=== PATIENT | male | born 1950 | race Hispanic/Latino ===

== ENCOUNTER 2017-07-19 22:10 | Inpatient (IN) | payer OTHER ==
[~2017-07-19] VITALS: Ht 167.6 cm; Wt 97.1 kg
[2017-07-19] MEDS ORDERED: METOPROLOL TARTRATE 1 MG/ML 5ML VIAL IV ONE (22:13)
[2017-07-19] MEDS ORDERED: FUROSEMIDE 10 MG/ML 4ML VIAL ONE (22:13)
[2017-07-19 22:27] LABS: BASOPHILS % (AUTO) 0.6 % (0.0-5.0); EOSINOPHILS % (AUTO) 1.1 % (0.0-8.0); LYMPHOCYTES % (AUTO) 14.7 % (21.0-51.0); MEAN CORPUSCULAR HEMOGLOBIN 28.9 pg (27.0-33.0); MEAN CORPUSCULAR HGB CONC 34.3 g/dL (32.0-36.0); MEAN CORPUSCULAR VOLUME 84.2 fL (79-99); MONOCYTES % (AUTO) 6.8 % (3.0-13.0); NEUTROPHILS % (AUTO) 76.8 % (40.0-77.0); PLATELET COUNT (AUTO) 313 K/uL (130-400); RED BLOOD CELL COUNT(AUTO) 5.11 MIL/uL (4.50-6.20); RED CELL DISTRIBUTION WIDTH 12.8 % (11.0-15.5); WHITE BLOOD COUNT (AUTO) 14.4 K/uL (4.8-10.8)
[2017-07-19 22:36] LABS: CREATININE 1.5 mg/dL (0.5-1.5); POTASSIUM 3.4 mmol/L (3.5-5.1)
[2017-07-19 22:39] LABS: INR 1.11 (0.85-1.15); PARTIAL THROMBOPLASTIN TIME 28.8 SEC (26.3-35.5); PROTHROMBIN TIME 11.6 SEC (9.6-11.6)
[2017-07-19 22:49] LABS: ALBUMIN 2.4 g/dL (3.5-5.0); BILIRUBIN,TOTAL 0.5 mg/dL (0.2-1.0); CREATINE KINASE MB 2.2 ng/mL (0.5-3.6); TOTAL PROTEIN, SERUM 7.7 g/dL (6.0-8.3)
[2017-07-19 22:59] LABS: RAPID GROUP A STREP NEGATIVE (NEGATIVE)
[2017-07-19 23:08] LABS: B-TYPE NATRIURETIC PEPTIDE 22 pg/mL (0-100)
[2017-07-19 23:09] LABS: ABG BASE EXCESS 0.9 mmol/L (-2.0-3.0); ABG HCO3 23.6 mmol/L (21.0-28.0); ABG OXYGEN SATURATION 94.9 % (95.0-99.0); ABG PCO2 33 mmHg (35-48)
[2017-07-20] VITALS (7 sets, daily range): BP systolic 107–134; BP diastolic 60–71
[2017-07-20 00:23] LABS: APPEARANCE,URINE Clear (CLEAR); BILIRUBIN,URINE Negative (NEGATIVE); COLOR,URINE Yellow (YELLOW); GLUCOSE, URINE (UA) Negative (NEGATIVE); KETONES,URINE Negative (NEGATIVE); LEUKOCYTE ESTERASE ,URINE Negative (NEGATIVE); NITRATE,URINE Negative (NEGATIVE); OCCULT BLOOD,URINE Negative (NEGATIVE); PH,URINE 6.5 (5.0-8.0); PROTEIN,URINE Negative (NEGATIVE); UROBILINOGEN,URINE 0.2 mg/dL (0.2-1.0)
[2017-07-20] MEDS ORDERED: DIGOXIN 250 MCG/ML 2ML AMP ONE (00:59)
[2017-07-20] MEDS ORDERED: FURO80TA3 PO (02:30)
[2017-07-20] MEDS ORDERED: POTA20TA12 PO (02:30)
[2017-07-20] MEDS ORDERED: SULF1TAB41 PO (02:30)
[2017-07-20 04:23] LABS: BASOPHILS % (AUTO) 0.3 % (0.0-5.0); EOSINOPHILS % (AUTO) 1.4 % (0.0-8.0); HEMATOCRIT 39.7 % (42-54); LYMPHOCYTES % (AUTO) 17.5 % (21.0-51.0); MEAN CORPUSCULAR HEMOGLOBIN 29.5 pg (27.0-33.0); MEAN CORPUSCULAR HGB CONC 34.9 g/dL (32.0-36.0); MEAN CORPUSCULAR VOLUME 84.6 fL (79-99); NEUTROPHILS % (AUTO) 73.8 % (40.0-77.0); PLATELET COUNT (AUTO) 274 K/uL (130-400); RED BLOOD CELL COUNT(AUTO) 4.69 MIL/uL (4.50-6.20); RED CELL DISTRIBUTION WIDTH 12.9 % (11.0-15.5); WHITE BLOOD COUNT (AUTO) 10.7 K/uL (4.8-10.8)
[2017-07-20 04:25] LABS: CREATININE 1.4 mg/dL (0.5-1.5); POTASSIUM 3.3 mmol/L (3.5-5.1)
[2017-07-20 05:07] LABS: B-TYPE NATRIURETIC PEPTIDE 29 pg/mL (0-100)
[2017-07-20] MEDS ORDERED: POTASSIUM CHLORIDE 20MEQ/100ML 100 ML IV PRN (08:45)
[2017-07-20] MEDS ORDERED: ACETAMINOPHEN 325 MG TAB PO PRN (08:45)
[2017-07-20] MEDS ORDERED: ONDANSETRON HCL 4 MG/2 ML VIAL IVP PRN (08:45)
[2017-07-20] MEDS ORDERED: POTASSIUM CHLORIDE 20 MEQ ERTAB PO PRN (08:45)
[2017-07-20] MEDS ORDERED: LIDOCAINE HCL-MPF 1% 2ML VIAL IJ PRN (08:45)
[2017-07-20] MEDS ORDERED: SODIUM CHLORIDE 0.9% 10 ML VIAL IVP SCH (08:45)
[2017-07-20] MEDS ORDERED: POTASSIUM CHLORIDE 10% ELIXIR 20 MEQ/15 ML UDCUP PO PRN (08:45)
[2017-07-20] MEDS ORDERED: FUROSEMIDE 10 MG/ML 4ML VIAL IVP SCH (09:00)
[2017-07-20] MEDS ORDERED: FUROSEMIDE 10 MG/ML 4ML VIAL IV SCH (09:00)
[2017-07-20] MEDS ORDERED: HEPARIN SODIUM 5000UNIT/ML 1ML VIAL SQ SCH (09:00)
[2017-07-20] MEDS: FAMOTIDINE 20MG TAB 20 MG TAB PO SCH ×2 (09:47→20:52)
[2017-07-20] MEDS ORDERED: CEFTRIAXONE 1GM/D5W 50ML 50 ML IV SCH (12:30)
[2017-07-20] MEDS ORDERED: LEVOFLOXACIN 500 MG/D5W 100 ML 100 ML IV SCH (12:30)
[2017-07-20] MEDS: CEFTRIAXONE SODIUM 1 GM IVP SCH (13:44)
[2017-07-21 03:19] VITALS: BP 125/68
[2017-07-21 07:58] VITALS: BP 126/86
[2017-07-21] MEDS: POTASSIUM CHLORIDE 20 MEQ ERTAB PO SCH (08:00)
[2017-07-21] MEDS: FAMOTIDINE 20MG TAB 20 MG TAB PO SCH ×2 (10:33→20:27)
[2017-07-21] MEDS: FUROSEMIDE 80 MG TABLET PO SCH ×2 (10:38→20:27)
[2017-07-21] MEDS: ENOXAPARIN SODIUM 40 MG/0.4 ML SYRINGE SQ SCH (10:39)
[2017-07-21 11:24] VITALS: BP 127/69
[2017-07-21] MEDS ORDERED: LEVOFLOXACIN 250 MG/D5W 50ML 50 ML IVPB SCH (13:00)
[2017-07-21] MEDS: CEFTRIAXONE SODIUM 1 GM IVP SCH (13:14)
[2017-07-21 15:28] VITALS: BP 111/68
[2017-07-21 18:55] VITALS: BP 133/66
[2017-07-21 22:54] VITALS: BP 122/70
[2017-07-22 03:18] VITALS: BP 118/56
[2017-07-22] MEDS ORDERED: AMIODARONE HCL 200 MG TABLET PO SCH (03:45)
[2017-07-22] MEDS ORDERED: METOPROLOL TARTRATE 1 MG/ML 5ML VIAL IV PRN (03:45)
[2017-07-22] MEDS ORDERED: METOPROLOL TARTRATE 1 MG/ML 5ML VIAL IV SCH (03:45)
[2017-07-22 03:50] LABS: BASOPHILS % (AUTO) 0.4 % (0.0-5.0); EOSINOPHILS % (AUTO) 1.3 % (0.0-8.0); HEMATOCRIT 42.2 % (42-54); LYMPHOCYTES % (AUTO) 14.5 % (21.0-51.0); MEAN CORPUSCULAR HEMOGLOBIN 28.9 pg (27.0-33.0); MEAN CORPUSCULAR HGB CONC 34.3 g/dL (32.0-36.0); MEAN CORPUSCULAR VOLUME 84.2 fL (79-99); MONOCYTES % (AUTO) 5.8 % (3.0-13.0); PLATELET COUNT (AUTO) 272 K/uL (130-400); RED BLOOD CELL COUNT(AUTO) 5.01 MIL/uL (4.50-6.20); RED CELL DISTRIBUTION WIDTH 12.7 % (11.0-15.5); WHITE BLOOD COUNT (AUTO) 12.5 K/uL (4.8-10.8)
[2017-07-22 03:58] LABS: CREATININE 1.3 mg/dL (0.5-1.5); POTASSIUM 3.5 mmol/L (3.5-5.1)
[2017-07-22] MEDS ORDERED: METOPROLOL TARTRATE 1 MG/ML 5ML VIAL IV ONE (03:58)
[2017-07-22] MEDS ORDERED: AMIODARONE HCL 200 MG TABLET PO ONE (03:59)
[2017-07-22 07:14] LABS: ABG BASE EXCESS 7.4 mmol/L (-2.0-3.0); ABG HCO3 30.9 mmol/L (21.0-28.0); ABG OXYGEN SATURATION 88.9 % (95.0-99.0); ABG PCO2 39 mmHg (35-48)
[2017-07-22] MEDS ORDERED: LEVOFLOXACIN 250 MG/D5W 50ML 50 ML IV SCH (07:45)
[2017-07-22 07:49] VITALS: BP 104/63
[2017-07-22] MEDS ORDERED: CEFTRIAXONE 1GM/D5W 50ML 50 ML IV SCH (09:00)
[2017-07-22] MEDS: LEVOFLOXACIN 250 MG/D5W 50ML 50 ML IV SCH (09:05)
[2017-07-22] MEDS: CEFTRIAXONE SODIUM 1 GM IVP SCH (09:05)
[2017-07-22] MEDS: AMIODARONE HCL 200 MG TABLET PO SCH ×2 (09:06→20:16)
[2017-07-22] MEDS: FUROSEMIDE 80 MG TABLET PO SCH (09:06)
[2017-07-22] MEDS: FAMOTIDINE 20MG TAB 20 MG TAB PO SCH ×2 (09:06→20:15)
[2017-07-22] MEDS: POTASSIUM CHLORIDE 20 MEQ ERTAB PO SCH (09:06)
[2017-07-22] MEDS: ENOXAPARIN SODIUM 40 MG/0.4 ML SYRINGE SQ SCH (09:07)
[2017-07-22 11:22] VITALS: BP 117/64
[2017-07-22] MEDS: IPRATROPIUM/ALBUTEROL SULFATE 3 ML SOLUTION IH SCH ×3 (15:18→23:48)
[2017-07-22 16:07] VITALS: BP 118/51
[2017-07-22 19:07] VITALS: BP 131/66
[2017-07-22] MEDS ORDERED: SODIUM CHLORIDE 3% FOR INHALATION 4 ML/AMP VIAL.NEB IH ONE (22:35)
[2017-07-22 23:22] VITALS: BP 134/63
[2017-07-23 02:59] VITALS: BP 10/70
[2017-07-23 03:49] LABS: MEAN CORPUSCULAR HEMOGLOBIN 29.2 pg (27.0-33.0); MEAN CORPUSCULAR HGB CONC 34.4 g/dL (32.0-36.0); MEAN CORPUSCULAR VOLUME 84.8 fL (79-99); PLATELET COUNT (AUTO) 269 K/uL (130-400); RED BLOOD CELL COUNT(AUTO) 4.84 MIL/uL (4.50-6.20); WHITE BLOOD COUNT (AUTO) 14.6 K/uL (4.8-10.8)
[2017-07-23 03:58] LABS: CREATININE 1.2 mg/dL (0.5-1.5); POTASSIUM 3.3 mmol/L (3.5-5.1)
[2017-07-23 07:00] VITALS: BP 131/69
[2017-07-23] MEDS: IPRATROPIUM/ALBUTEROL SULFATE 3 ML SOLUTION IH SCH ×5 (07:06→23:39)
[2017-07-23] MEDS: FAMOTIDINE 20MG TAB 20 MG TAB PO SCH ×2 (09:58→21:40)
[2017-07-23] MEDS: AMIODARONE HCL 200 MG TABLET PO SCH ×2 (09:58→21:40)
[2017-07-23] MEDS: CEFTRIAXONE SODIUM 1 GM IVP SCH (09:58)
[2017-07-23] MEDS: LEVOFLOXACIN 250 MG/D5W 50ML 50 ML IV SCH (09:59)
[2017-07-23] MEDS: POTASSIUM CHLORIDE 20 MEQ ERTAB PO SCH (09:59)
[2017-07-23] MEDS: ENOXAPARIN SODIUM 40 MG/0.4 ML SYRINGE SQ SCH (10:00)
[2017-07-23] MEDS ORDERED: MEROPENEM 1 GM VIAL IVP SCH (10:45)
[2017-07-23 11:00] VITALS: BP 120/81
[2017-07-23] MEDS: MEROPENEM 1 GM VIAL IVP SCH ×2 (12:45→21:40)
[2017-07-23] MEDS ORDERED: ZOSYN 3.375GM+NS 50ML 50 ML IV SCH (13:30)
[2017-07-23] MEDS ORDERED: SODIUM CHLORIDE 3% FOR INHALATION 4 ML/AMP VIAL.NEB IH ONE (15:16)
[2017-07-23 16:00] VITALS: BP 106/61
[2017-07-23 19:25] VITALS: BP 111/73
[2017-07-23 23:49] VITALS: BP 109/63
[2017-07-24 04:06] VITALS: BP 112/58
[2017-07-24 04:07] LABS: BASOPHILS % (AUTO) 0.4 % (0.0-5.0); EOSINOPHILS % (AUTO) 1.1 % (0.0-8.0); LYMPHOCYTES % (AUTO) 12.1 % (21.0-51.0); MEAN CORPUSCULAR HEMOGLOBIN 29.1 pg (27.0-33.0); MEAN CORPUSCULAR HGB CONC 34.4 g/dL (32.0-36.0); MEAN CORPUSCULAR VOLUME 84.6 fL (79-99); MONOCYTES % (AUTO) 6.6 % (3.0-13.0); NEUTROPHILS % (AUTO) 79.8 % (40.0-77.0); PLATELET COUNT (AUTO) 299 K/uL (130-400); RED BLOOD CELL COUNT(AUTO) 4.85 MIL/uL (4.50-6.20); RED CELL DISTRIBUTION WIDTH 13.2 % (11.0-15.5); WHITE BLOOD COUNT (AUTO) 14.7 K/uL (4.8-10.8)
[2017-07-24 04:17] LABS: CREATININE 1.1 mg/dL (0.5-1.5); POTASSIUM 4.1 mmol/L (3.5-5.1)
[2017-07-24] MEDS: MEROPENEM 1 GM VIAL IVP SCH ×3 (05:22→20:51)
[2017-07-24] MEDS: IPRATROPIUM/ALBUTEROL SULFATE 3 ML SOLUTION IH SCH (06:03)
[2017-07-24 07:00] VITALS: BP 115/69
[2017-07-24] MEDS ORDERED: IPRATROPIUM 0.5 MG/2.5 ML INH IH PRN (07:45)
[2017-07-24] MEDS: FAMOTIDINE 20MG TAB 20 MG TAB PO SCH ×2 (09:28→20:51)
[2017-07-24] MEDS: AMIODARONE HCL 200 MG TABLET PO SCH ×2 (09:28→20:51)
[2017-07-24] MEDS: POTASSIUM CHLORIDE 20 MEQ ERTAB PO SCH (09:28)
[2017-07-24] MEDS: LEVOFLOXACIN 250 MG/D5W 50ML 50 ML IV SCH (09:29)
[2017-07-24] MEDS: ENOXAPARIN SODIUM 40 MG/0.4 ML SYRINGE SQ SCH (09:29)
[2017-07-24 11:00] VITALS: BP 122/75
[2017-07-24] MEDS: IPRATROPIUM 0.5 MG/2.5 ML INH IH SCH ×3 (11:11→23:25)
[2017-07-24] MEDS ORDERED: ONDANSETRON HCL MDV 20ML 2 MG/ML VIAL IVP PRN (12:35)
[2017-07-24 16:00] VITALS: BP 129/74
[2017-07-24 19:24] VITALS: BP 117/67
[2017-07-24 23:07] VITALS: BP 121/69
[2017-07-25 03:25] VITALS: BP 122/67
[2017-07-25 03:59] LABS: HEMATOCRIT 38.8 % (42-54); MEAN CORPUSCULAR HEMOGLOBIN 28.8 pg (27.0-33.0); MEAN CORPUSCULAR HGB CONC 33.9 g/dL (32.0-36.0); MEAN CORPUSCULAR VOLUME 84.8 fL (79-99); PLATELET COUNT (AUTO) 284 K/uL (130-400); RED BLOOD CELL COUNT(AUTO) 4.57 MIL/uL (4.50-6.20); RED CELL DISTRIBUTION WIDTH 13.1 % (11.0-15.5); WHITE BLOOD COUNT (AUTO) 14.2 K/uL (4.8-10.8)
[2017-07-25 04:15] LABS: CREATININE 1.1 mg/dL (0.5-1.5); MAGNESIUM 2.4 mg/dL (1.80-2.40); POTASSIUM 4.4 mmol/L (3.5-5.1)
[2017-07-25] MEDS: IPRATROPIUM 0.5 MG/2.5 ML INH IH SCH ×3 (06:11→18:52)
[2017-07-25] MEDS: MEROPENEM 1 GM VIAL IVP SCH ×3 (06:36→21:58)
[2017-07-25] MEDS ORDERED: VANCOMYCIN PROTOCOL PER PHARMACY IV SCH (07:45)
[2017-07-25 08:00] VITALS: BP 108/60
[2017-07-25] MEDS ORDERED: COMPOUND IV REFRIGERATED 1 EACH IVSOLN MISC PRN (08:00)
[2017-07-25] MEDS: POTASSIUM CHLORIDE 20 MEQ ERTAB PO SCH (08:28)
[2017-07-25] MEDS: FAMOTIDINE 20MG TAB 20 MG TAB PO SCH ×2 (09:38→21:59)
[2017-07-25] MEDS: AMIODARONE HCL 200 MG TABLET PO SCH ×2 (09:38→21:59)
[2017-07-25] MEDS: LEVOFLOXACIN 250 MG/D5W 50ML 50 ML IV SCH (09:38)
[2017-07-25] MEDS: ENOXAPARIN SODIUM 40 MG/0.4 ML SYRINGE SQ SCH (09:39)
[2017-07-25] MEDS: VANCOMYCIN 1.5 GM in SODIUM CHLORIDE 0.9% 250 ML IV SCH ×2 (10:19→22:02)
[2017-07-25 11:06] VITALS: BP 123/65
[2017-07-25 16:32] VITALS: BP 116/65
[2017-07-25 19:10] VITALS: BP 119/65
[2017-07-25 23:23] VITALS: BP 122/59
[2017-07-26] MEDS: IPRATROPIUM 0.5 MG/2.5 ML INH IH SCH ×4 (00:03→18:49)
[2017-07-26 04:01] LABS: HEMATOCRIT 37.8 % (42-54); MEAN CORPUSCULAR HEMOGLOBIN 29.4 pg (27.0-33.0); MEAN CORPUSCULAR HGB CONC 34.3 g/dL (32.0-36.0); MEAN CORPUSCULAR VOLUME 85.5 fL (79-99); PLATELET COUNT (AUTO) 288 K/uL (130-400); RED BLOOD CELL COUNT(AUTO) 4.42 MIL/uL (4.50-6.20); WHITE BLOOD COUNT (AUTO) 13.6 K/uL (4.8-10.8)
[2017-07-26 04:11] LABS: CREATININE 1.1 mg/dL (0.5-1.5); POTASSIUM 4.5 mmol/L (3.5-5.1)
[2017-07-26 04:45] VITALS: BP 117/63
[2017-07-26] MEDS: MEROPENEM 1 GM VIAL IVP SCH ×3 (05:15→21:40)
[2017-07-26 07:47] VITALS: BP 116/64
[2017-07-26] MEDS: POTASSIUM CHLORIDE 20 MEQ ERTAB PO SCH (08:13)
[2017-07-26] MEDS: AMIODARONE HCL 200 MG TABLET PO SCH ×2 (09:12→21:41)
[2017-07-26] MEDS: FAMOTIDINE 20MG TAB 20 MG TAB PO SCH ×2 (09:12→21:42)
[2017-07-26] MEDS: LEVOFLOXACIN 250 MG/D5W 50ML 50 ML IV SCH (09:12)
[2017-07-26] MEDS: ENOXAPARIN SODIUM 40 MG/0.4 ML SYRINGE SQ SCH (09:13)
[2017-07-26] MEDS: VANCOMYCIN 1.5 GM in SODIUM CHLORIDE 0.9% 250 ML IV SCH ×2 (10:29→21:46)
[2017-07-26 11:21] VITALS: BP 123/79
[2017-07-26] MEDS ORDERED: METOPROLOL TARTRATE 25 MG TAB PO SCH (11:45)
[2017-07-26 16:10] VITALS: BP 109/62
[2017-07-26] MEDS: BUDESONIDE 0.5 MG/2 ML INH IH SCH (18:50)
[2017-07-26] MEDS ORDERED: BUDESONIDE 0.5 MG/2 ML INH IH ONE (19:07)
[2017-07-26 19:34] VITALS: BP 113/62
[2017-07-26] MEDS: METHYLPREDNISOLONE SOD SUCC 40MG/ML 1ML IVP SCH (21:40)
[2017-07-26] MEDS: METOPROLOL TARTRATE 25 MG TAB PO SCH (21:41)
[2017-07-26 23:20] VITALS: BP 112/62
[2017-07-27] MEDS: IPRATROPIUM 0.5 MG/2.5 ML INH IH SCH ×5 (00:31→23:37)
[2017-07-27 03:49] LABS: HEMATOCRIT 38.7 % (42-54); MEAN CORPUSCULAR HEMOGLOBIN 28.8 pg (27.0-33.0); MEAN CORPUSCULAR HGB CONC 33.9 g/dL (32.0-36.0); PLATELET COUNT (AUTO) 300 K/uL (130-400); RED BLOOD CELL COUNT(AUTO) 4.56 MIL/uL (4.50-6.20); WHITE BLOOD COUNT (AUTO) 12.5 K/uL (4.8-10.8)
[2017-07-27 03:58] LABS: CREATININE 1.1 mg/dL (0.5-1.5); POTASSIUM 4.8 mmol/L (3.5-5.1)
[2017-07-27 04:10] VITALS: BP 117/59
[2017-07-27] MEDS: MEROPENEM 1 GM VIAL IVP SCH ×3 (06:11→20:31)
[2017-07-27] MEDS: BUDESONIDE 0.5 MG/2 ML INH IH SCH ×2 (06:44→19:00)
[2017-07-27 07:00] VITALS: BP 107/64
[2017-07-27] MEDS: POTASSIUM CHLORIDE 20 MEQ ERTAB PO SCH (08:00)
[2017-07-27] MEDS: AMIODARONE HCL 200 MG TABLET PO SCH ×2 (10:56→20:31)
[2017-07-27] MEDS: FAMOTIDINE 20MG TAB 20 MG TAB PO SCH ×2 (10:56→20:31)
[2017-07-27] MEDS: METHYLPREDNISOLONE SOD SUCC 40MG/ML 1ML IVP SCH ×2 (10:57→20:30)
[2017-07-27] MEDS: METOPROLOL TARTRATE 25 MG TAB PO SCH ×2 (10:57→20:31)
[2017-07-27] MEDS: ENOXAPARIN SODIUM 40 MG/0.4 ML SYRINGE SQ SCH (10:57)
[2017-07-27] MEDS: LEVOFLOXACIN 250 MG/D5W 50ML 50 ML IV SCH (10:58)
[2017-07-27] MEDS: VANCOMYCIN 1.5 GM in SODIUM CHLORIDE 0.9% 250 ML IV SCH ×2 (10:58→20:32)
[2017-07-27 11:00] VITALS: BP 124/70
[2017-07-27 12:01] LABS: ABG BASE EXCESS 5.8 mmol/L (-2.0-3.0); ABG HCO3 29.7 mmol/L (21.0-28.0); ABG OXYGEN SATURATION 95.3 % (95.0-99.0); ABG PCO2 41 mmHg (35-48)
[2017-07-27 13:32] LABS: CRP QUANTITATIVE 265.4 mg/L (0.00-9.0)
[2017-07-27] MEDS ORDERED: IOPAMIDOL-370 100 ML VIAL IV ONE (14:31)
[2017-07-27 16:00] VITALS: BP 119/70
[2017-07-27] MEDS ORDERED: FUROSEMIDE 10 MG/ML 4ML VIAL IV SCH (17:00)
[2017-07-27 19:33] VITALS: BP 125/72
[2017-07-27 23:15] VITALS: BP 103/61
[2017-07-28 03:45] VITALS: BP 122/73
[2017-07-28] MEDS: MEROPENEM 1 GM VIAL IVP SCH ×3 (04:47→22:34)
[2017-07-28] MEDS: IPRATROPIUM 0.5 MG/2.5 ML INH IH SCH ×3 (05:51→17:57)
[2017-07-28] MEDS: BUDESONIDE 0.5 MG/2 ML INH IH SCH ×2 (06:03→17:57)
[2017-07-28 07:00] VITALS: BP 115/70
[2017-07-28] MEDS: LEVOFLOXACIN 250 MG/D5W 50ML 50 ML IV SCH (08:48)
[2017-07-28] MEDS: VANCOMYCIN 1.5 GM in SODIUM CHLORIDE 0.9% 250 ML IV SCH ×2 (08:49→22:37)
[2017-07-28] MEDS: POTASSIUM CHLORIDE 20 MEQ ERTAB PO SCH (08:49)
[2017-07-28] MEDS: METOPROLOL TARTRATE 25 MG TAB PO SCH ×2 (08:49→22:34)
[2017-07-28] MEDS: FUROSEMIDE 10 MG/ML 4ML VIAL IV SCH (08:50)
[2017-07-28] MEDS: METHYLPREDNISOLONE SOD SUCC 40MG/ML 1ML IVP SCH (08:50)
[2017-07-28] MEDS: AMIODARONE HCL 200 MG TABLET PO SCH ×2 (08:50→22:34)
[2017-07-28] MEDS: FAMOTIDINE 20MG TAB 20 MG TAB PO SCH ×2 (08:50→22:34)
[2017-07-28] MEDS: ENOXAPARIN SODIUM 40 MG/0.4 ML SYRINGE SQ SCH (08:53)
[2017-07-28 11:00] VITALS: BP 122/66
[2017-07-28 11:58] LABS: MEAN CORPUSCULAR HEMOGLOBIN 29.2 pg (27.0-33.0); MEAN CORPUSCULAR VOLUME 85.7 fL (79-99); NUCLEATED RED BLOOD CELLS 0.1 % (0.0-0.19); PLATELET COUNT (AUTO) 380 K/uL (130-400); RED BLOOD CELL COUNT(AUTO) 4.67 MIL/uL (4.50-6.20); RED CELL DISTRIBUTION WIDTH 12.9 % (11.0-15.5); WHITE BLOOD COUNT (AUTO) 19.5 K/uL (4.8-10.8)
[2017-07-28 12:09] LABS: CREATININE 1.1 mg/dL (0.5-1.5); POTASSIUM 4.4 mmol/L (3.5-5.1)
[2017-07-28] MEDS: METHYLPREDNISOLONE SOD SUCC 125MG/2ML VIAL IVP SCH ×2 (13:41→22:34)
[2017-07-28 16:00] VITALS: BP 116/70
[2017-07-28 19:48] VITALS: BP 115/65
[2017-07-28 23:31] VITALS: BP 108/60
[2017-07-29] MEDS: IPRATROPIUM 0.5 MG/2.5 ML INH IH SCH ×5 (01:16→23:34)
[2017-07-29 03:48] VITALS: BP 115/70
[2017-07-29 04:16] LABS: HEMATOCRIT 41.7 % (42-54); MEAN CORPUSCULAR HEMOGLOBIN 28.3 pg (27.0-33.0); MEAN CORPUSCULAR VOLUME 85.9 fL (79-99); PLATELET COUNT (AUTO) 356 K/uL (130-400); RED BLOOD CELL COUNT(AUTO) 4.86 MIL/uL (4.50-6.20); WHITE BLOOD COUNT (AUTO) 17.6 K/uL (4.8-10.8)
[2017-07-29 04:24] LABS: POTASSIUM 4.9 mmol/L (3.5-5.1)
[2017-07-29 05:18] LABS: B-TYPE NATRIURETIC PEPTIDE 42 pg/mL (0-100)
[2017-07-29] MEDS: MEROPENEM 1 GM VIAL IVP SCH ×3 (06:28→21:20)
[2017-07-29] MEDS: METHYLPREDNISOLONE SOD SUCC 125MG/2ML VIAL IVP SCH ×3 (06:29→21:20)
[2017-07-29 07:00] VITALS: BP 107/61
[2017-07-29] MEDS: BUDESONIDE 0.5 MG/2 ML INH IH SCH ×2 (07:03→19:12)
[2017-07-29] MEDS: VANCOMYCIN 1.5 GM in SODIUM CHLORIDE 0.9% 250 ML IV SCH ×2 (09:00→21:21)
[2017-07-29 11:00] VITALS: BP 115/78
[2017-07-29] MEDS: FUROSEMIDE 10 MG/ML 4ML VIAL IV SCH (11:46)
[2017-07-29] MEDS: METOPROLOL TARTRATE 25 MG TAB PO SCH ×2 (11:47→21:20)
[2017-07-29] MEDS: AMIODARONE HCL 200 MG TABLET PO SCH ×2 (11:47→21:20)
[2017-07-29] MEDS: ENOXAPARIN SODIUM 40 MG/0.4 ML SYRINGE SQ SCH (11:47)
[2017-07-29] MEDS: LEVOFLOXACIN 250 MG/D5W 50ML 50 ML IV SCH (11:48)
[2017-07-29] MEDS: POTASSIUM CHLORIDE 20 MEQ ERTAB PO SCH (11:50)
[2017-07-29] MEDS: FAMOTIDINE 20MG TAB 20 MG TAB PO SCH ×2 (11:51→21:20)
[2017-07-29 16:00] VITALS: BP 112/63
[2017-07-29 20:09] VITALS: BP 110/56
[2017-07-29 23:30] VITALS: BP 111/56
[2017-07-30 03:59] VITALS: BP 113/61
[2017-07-30 04:14] LABS: HEMATOCRIT 41.2 % (42-54); LYMPHOCYTES % (AUTO) 6.4 % (21.0-51.0); MEAN CORPUSCULAR HEMOGLOBIN 28.5 pg (27.0-33.0); MEAN CORPUSCULAR HGB CONC 33.3 g/dL (32.0-36.0); MEAN CORPUSCULAR VOLUME 85.6 fL (79-99); NEUTROPHILS % (AUTO) 87.6 % (40.0-77.0); PLATELET COUNT (AUTO) 331 K/uL (130-400); RED BLOOD CELL COUNT(AUTO) 4.81 MIL/uL (4.50-6.20); RED CELL DISTRIBUTION WIDTH 13.2 % (11.0-15.5); WHITE BLOOD COUNT (AUTO) 15.4 K/uL (4.8-10.8)
[2017-07-30 04:20] LABS: CREATININE 0.9 mg/dL (0.5-1.5); POTASSIUM 4.8 mmol/L (3.5-5.1)
[2017-07-30] MEDS: MEROPENEM 1 GM VIAL IVP SCH ×3 (05:33→21:51)
[2017-07-30] MEDS: METHYLPREDNISOLONE SOD SUCC 125MG/2ML VIAL IVP SCH ×3 (05:33→21:52)
[2017-07-30] MEDS: BUDESONIDE 0.5 MG/2 ML INH IH SCH ×2 (05:44→18:20)
[2017-07-30] MEDS: IPRATROPIUM 0.5 MG/2.5 ML INH IH SCH ×4 (05:44→23:05)
[2017-07-30 07:51] VITALS: BP 113/66
[2017-07-30] MEDS: POTASSIUM CHLORIDE 20 MEQ ERTAB PO SCH (08:37)
[2017-07-30] MEDS: FAMOTIDINE 20MG TAB 20 MG TAB PO SCH ×2 (10:01→21:52)
[2017-07-30] MEDS: LEVOFLOXACIN 250 MG/D5W 50ML 50 ML IV SCH (10:01)
[2017-07-30] MEDS: AMIODARONE HCL 200 MG TABLET PO SCH ×2 (10:01→21:52)
[2017-07-30] MEDS: FUROSEMIDE 10 MG/ML 4ML VIAL IV SCH (10:02)
[2017-07-30] MEDS: ENOXAPARIN SODIUM 40 MG/0.4 ML SYRINGE SQ SCH (10:02)
[2017-07-30] MEDS: METOPROLOL TARTRATE 25 MG TAB PO SCH ×2 (10:02→21:53)
[2017-07-30] MEDS: VANCOMYCIN 1.5 GM in SODIUM CHLORIDE 0.9% 250 ML IV SCH ×2 (10:51→21:54)
[2017-07-30 11:24] VITALS: BP 113/71
[2017-07-30 12:12] LABS: ALPHA-1-ANTITRYPSIN 282 mg/dL (90-200)
[2017-07-30 16:03] VITALS: BP 117/69
[2017-07-30 19:59] VITALS: BP 119/70
[2017-07-30 23:36] VITALS: BP 111/76
[2017-07-31 04:00] VITALS: BP 116/75
[2017-07-31] MEDS: MEROPENEM 1 GM VIAL IVP SCH ×3 (05:00→21:58)
[2017-07-31 05:30] LABS: HEMATOCRIT 44.9 % (42-54); MEAN CORPUSCULAR HEMOGLOBIN 28.7 pg (27.0-33.0); MEAN CORPUSCULAR HGB CONC 33.4 g/dL (32.0-36.0); MEAN CORPUSCULAR VOLUME 85.9 fL (79-99); NUCLEATED RED BLOOD CELLS 0.1 % (0.0-0.19); PLATELET COUNT (AUTO) 337 K/uL (130-400); RED BLOOD CELL COUNT(AUTO) 5.23 MIL/uL (4.50-6.20); RED CELL DISTRIBUTION WIDTH 13.5 % (11.0-15.5); WHITE BLOOD COUNT (AUTO) 16.4 K/uL (4.8-10.8)
[2017-07-31 05:53] LABS: CREATININE 0.9 mg/dL (0.5-1.5); POTASSIUM 5.2 mmol/L (3.5-5.1)
[2017-07-31] MEDS: IPRATROPIUM 0.5 MG/2.5 ML INH IH SCH ×3 (05:55→18:59)
[2017-07-31] MEDS: BUDESONIDE 0.5 MG/2 ML INH IH SCH ×2 (05:55→18:59)
[2017-07-31 07:00] VITALS: BP 114/76
[2017-07-31] MEDS: POTASSIUM CHLORIDE 20 MEQ ERTAB PO SCH (08:00)
[2017-07-31] MEDS: METHYLPREDNISOLONE SOD SUCC 125MG/2ML VIAL IVP SCH ×3 (08:34→21:59)
[2017-07-31 09:34] LABS: ABG BASE EXCESS 5.3 mmol/L (-2.0-3.0); ABG OXYGEN SATURATION 92.9 % (95.0-99.0); ABG PCO2 39 mmHg (35-48)
[2017-07-31] MEDS: LEVOFLOXACIN 250 MG/D5W 50ML 50 ML IV SCH (10:05)
[2017-07-31] MEDS: FUROSEMIDE 10 MG/ML 4ML VIAL IV SCH (10:06)
[2017-07-31] MEDS: AMIODARONE HCL 200 MG TABLET PO SCH ×2 (10:06→21:59)
[2017-07-31] MEDS: METOPROLOL TARTRATE 25 MG TAB PO SCH ×2 (10:06→21:59)
[2017-07-31] MEDS: FAMOTIDINE 20MG TAB 20 MG TAB PO SCH ×2 (10:06→21:59)
[2017-07-31] MEDS: ENOXAPARIN SODIUM 40 MG/0.4 ML SYRINGE SQ SCH (10:07)
[2017-07-31] MEDS: VANCOMYCIN 1.5 GM in SODIUM CHLORIDE 0.9% 250 ML IV SCH (10:08)
[2017-07-31 11:44] VITALS: BP 122/80
[2017-07-31 16:42] VITALS: BP 116/57
[2017-07-31 19:53] VITALS: BP 132/76
[2017-07-31] MEDS: DOXYCYCLINE HYCLATE 100 MG TABLET PO SCH (21:59)
[2017-08-01] VITALS (7 sets, daily range): BP systolic 109–127; BP diastolic 71–85
[2017-08-01] MEDS: IPRATROPIUM 0.5 MG/2.5 ML INH IH SCH ×5 (00:07→23:44)
[2017-08-01 05:19] LABS: ABG BASE EXCESS 5.8 mmol/L (-2.0-3.0); ABG HCO3 29.4 mmol/L (21.0-28.0); ABG PCO2 39 mmHg (35-48)
[2017-08-01] MEDS: BUDESONIDE 0.5 MG/2 ML INH IH SCH ×2 (06:07→19:17)
[2017-08-01 06:21] LABS: MEAN CORPUSCULAR HEMOGLOBIN 28.6 pg (27.0-33.0); MEAN CORPUSCULAR HGB CONC 33.4 g/dL (32.0-36.0); MEAN CORPUSCULAR VOLUME 85.5 fL (79-99); PLATELET COUNT (AUTO) 319 K/uL (130-400); RED BLOOD CELL COUNT(AUTO) 5.38 MIL/uL (4.50-6.20); RED CELL DISTRIBUTION WIDTH 13.8 % (11.0-15.5); WHITE BLOOD COUNT (AUTO) 18.7 K/uL (4.8-10.8)
[2017-08-01 06:39] LABS: ALBUMIN 1.8 g/dL (3.5-5.0); BILIRUBIN,TOTAL 0.3 mg/dL (0.2-1.0); MAGNESIUM 2.8 mg/dL (1.80-2.40); PHOSPHORUS 4.3 mg/dL (2.5-4.9); POTASSIUM 4.8 mmol/L (3.5-5.1); TOTAL PROTEIN, SERUM 6.3 g/dL (6.0-8.3)
[2017-08-01] MEDS: MEROPENEM 1 GM VIAL IVP SCH ×3 (06:39→21:15)
[2017-08-01] MEDS: METHYLPREDNISOLONE SOD SUCC 125MG/2ML VIAL IVP SCH ×3 (06:39→21:15)
[2017-08-01 06:49] LABS: INR 1.06 (0.85-1.15); PARTIAL THROMBOPLASTIN TIME 24.5 SEC (26.3-35.5); PROTHROMBIN TIME 11.1 SEC (9.6-11.6)
[2017-08-01] MEDS: FAMOTIDINE 20MG TAB 20 MG TAB PO SCH ×2 (08:44→21:15)
[2017-08-01] MEDS: FUROSEMIDE 10 MG/ML 4ML VIAL IV SCH (08:45)
[2017-08-01] MEDS: AMIODARONE HCL 200 MG TABLET PO SCH ×2 (08:45→21:15)
[2017-08-01] MEDS: POTASSIUM CHLORIDE 20 MEQ ERTAB PO SCH (08:45)
[2017-08-01] MEDS: DOXYCYCLINE HYCLATE 100 MG TABLET PO SCH ×2 (08:45→21:15)
[2017-08-01] MEDS: METOPROLOL TARTRATE 25 MG TAB PO SCH ×2 (08:45→21:15)
[2017-08-01] MEDS: ENOXAPARIN SODIUM 40 MG/0.4 ML SYRINGE SQ SCH (08:46)
[2017-08-02 03:30] VITALS: BP 106/70
[2017-08-02 03:39] LABS: HEMATOCRIT 44.6 % (42-54); MEAN CORPUSCULAR HEMOGLOBIN 28.9 pg (27.0-33.0); MEAN CORPUSCULAR VOLUME 84.9 fL (79-99); PLATELET COUNT (AUTO) 307 K/uL (130-400); RED BLOOD CELL COUNT(AUTO) 5.25 MIL/uL (4.50-6.20); RED CELL DISTRIBUTION WIDTH 13.3 % (11.0-15.5); WHITE BLOOD COUNT (AUTO) 20.6 K/uL (4.8-10.8)
[2017-08-02 04:19] LABS: MAGNESIUM 2.8 mg/dL (1.80-2.40); PHOSPHORUS 4.1 mg/dL (2.5-4.9)
[2017-08-02] MEDS: MEROPENEM 1 GM VIAL IVP SCH ×3 (04:48→20:45)
[2017-08-02] MEDS: METHYLPREDNISOLONE SOD SUCC 125MG/2ML VIAL IVP SCH ×3 (04:48→20:46)
[2017-08-02] MEDS: IPRATROPIUM 0.5 MG/2.5 ML INH IH SCH ×4 (06:10→23:34)
[2017-08-02] MEDS: BUDESONIDE 0.5 MG/2 ML INH IH SCH ×2 (06:23→19:33)
[2017-08-02 07:54] VITALS: BP 116/67
[2017-08-02] MEDS: FUROSEMIDE 10 MG/ML 4ML VIAL IV SCH (11:16)
[2017-08-02] MEDS: AMIODARONE HCL 200 MG TABLET PO SCH ×2 (11:16→20:45)
[2017-08-02] MEDS: DOXYCYCLINE HYCLATE 100 MG TABLET PO SCH ×2 (11:16→20:45)
[2017-08-02] MEDS: FAMOTIDINE 20MG TAB 20 MG TAB PO SCH ×2 (11:16→20:45)
[2017-08-02] MEDS: ENOXAPARIN SODIUM 40 MG/0.4 ML SYRINGE SQ SCH (11:17)
[2017-08-02] MEDS: METOPROLOL TARTRATE 25 MG TAB PO SCH ×2 (11:17→20:45)
[2017-08-02] MEDS: POTASSIUM CHLORIDE 20 MEQ ERTAB PO SCH (11:21)
[2017-08-02 11:34] VITALS: BP 139/74
[2017-08-02 16:00] VITALS: BP 117/61
[2017-08-02 19:27] VITALS: BP 125/73
[2017-08-02 23:33] VITALS: BP 114/72
[2017-08-03 03:29] VITALS: BP 109/61
[2017-08-03] MEDS: MEROPENEM 1 GM VIAL IVP SCH ×3 (04:41→20:36)
[2017-08-03] MEDS: METHYLPREDNISOLONE SOD SUCC 125MG/2ML VIAL IVP SCH ×2 (04:42→12:57)
[2017-08-03] MEDS: IPRATROPIUM 0.5 MG/2.5 ML INH IH SCH ×4 (06:08→23:24)
[2017-08-03] MEDS: BUDESONIDE 0.5 MG/2 ML INH IH SCH ×2 (06:20→18:23)
[2017-08-03 07:23] VITALS: BP 120/73
[2017-08-03] MEDS: FUROSEMIDE 10 MG/ML 4ML VIAL IV SCH (08:55)
[2017-08-03] MEDS: FAMOTIDINE 20MG TAB 20 MG TAB PO SCH ×2 (08:56→20:37)
[2017-08-03] MEDS: POTASSIUM CHLORIDE 20 MEQ ERTAB PO SCH (08:56)
[2017-08-03] MEDS: ENOXAPARIN SODIUM 40 MG/0.4 ML SYRINGE SQ SCH (08:56)
[2017-08-03] MEDS: METOPROLOL TARTRATE 25 MG TAB PO SCH ×2 (08:57→20:36)
[2017-08-03] MEDS: AMIODARONE HCL 200 MG TABLET PO SCH (08:57)
[2017-08-03] MEDS: DOXYCYCLINE HYCLATE 100 MG TABLET PO SCH ×2 (08:57→20:37)
[2017-08-03 11:19] VITALS: BP 146/57
[2017-08-03 16:17] VITALS: BP 114/67
[2017-08-03 19:45] VITALS: BP 119/68
[2017-08-03] MEDS: METHYLPREDNISOLONE SOD SUCC 40MG/ML 1ML IVP SCH (20:36)
[2017-08-03 23:22] VITALS: BP 108/67
[2017-08-04 03:21] VITALS: BP 117/74
[2017-08-04 04:39] LABS: BASOPHILS % (AUTO) 0.2 % (0.0-5.0); EOSINOPHILS % (AUTO) 0.1 % (0.0-8.0); HEMATOCRIT 43.7 % (42-54); LYMPHOCYTES % (AUTO) 8.4 % (21.0-51.0); MEAN CORPUSCULAR HEMOGLOBIN 28.7 pg (27.0-33.0); MEAN CORPUSCULAR HGB CONC 33.7 g/dL (32.0-36.0); MEAN CORPUSCULAR VOLUME 85.2 fL (79-99); MONOCYTES % (AUTO) 6.9 % (3.0-13.0); NEUTROPHILS % (AUTO) 84.4 % (40.0-77.0); PLATELET COUNT (AUTO) 245 K/uL (130-400); RED BLOOD CELL COUNT(AUTO) 5.13 MIL/uL (4.50-6.20); RED CELL DISTRIBUTION WIDTH 13.8 % (11.0-15.5)
[2017-08-04] MEDS: METHYLPREDNISOLONE SOD SUCC 40MG/ML 1ML IVP SCH ×2 (05:26→14:35)
[2017-08-04] MEDS: MEROPENEM 1 GM VIAL IVP SCH ×2 (05:26→14:36)
[2017-08-04 05:46] LABS: CREATININE 0.9 mg/dL (0.5-1.5)
[2017-08-04] MEDS: IPRATROPIUM 0.5 MG/2.5 ML INH IH SCH ×2 (06:09→11:08)
[2017-08-04] MEDS: BUDESONIDE 0.5 MG/2 ML INH IH SCH (06:30)
[2017-08-04 07:18] VITALS: BP 132/64
[2017-08-04] MEDS: POTASSIUM CHLORIDE 20 MEQ ERTAB PO SCH (08:00)
[2017-08-04] MEDS: DOXYCYCLINE HYCLATE 100 MG TABLET PO SCH (08:55)
[2017-08-04] MEDS: FAMOTIDINE 20MG TAB 20 MG TAB PO SCH (08:55)
[2017-08-04] MEDS: METOPROLOL TARTRATE 25 MG TAB PO SCH (08:55)
[2017-08-04] MEDS: ENOXAPARIN SODIUM 40 MG/0.4 ML SYRINGE SQ SCH (08:55)
[2017-08-04] MEDS ORDERED: DILTIAZEM HCL 120 MG CAP.SR.24H PO SCH (09:00)
[2017-08-04] MEDS: FUROSEMIDE 10 MG/ML 4ML VIAL IV SCH (09:01)
[2017-08-04 11:14] VITALS: BP 129/64
[2017-08-04 16:00] VITALS: BP 122/62
[2017-08-04] MEDS ORDERED: ONDA2VIA IVP (16:18)
[2017-08-04] MEDS ORDERED: ACET-2247 PO (16:18)
[2017-08-04] MEDS ORDERED: DILT120C89 PO (16:18)
[2017-08-04] MEDS ORDERED: METO25 PO (16:18)
[2017-08-04] MEDS ORDERED: BUDE0.5A3 IH (16:18)
[2017-08-04] MEDS ORDERED: IPRNEB IH (16:18)
[2017-08-04] MEDS ORDERED: MERO1VIA IVP (16:18)
[2017-08-04] MEDS ORDERED: FURO10VI4 IV (16:18)
[2017-08-04] MEDS ORDERED: METH40VI31 IVP (16:18)
== END 2017-08-04 17:48 | DRG 196 ==
LOC: EDH 22:10 → 2AH 07-20 00:21 → OBSVTOIN 07-20 00:21
PROVIDERS: ADMIT Internal Medicine Nephrology; ATTEND Internal Medicine Nephrology
PROC: 02H633Z Insertion of Infusion Device into Right Atrium, Percutaneous Approach (ICD-10-PCS; 2017-07-28)
PROC: 5A09357 Assistance with Respiratory Ventilation, Less than 24 Consecutive Hours, Continuous Positive Airway Pressure (ICD-10-PCS; principal; 2017-07-30)
PROC: 5A09357 Assistance with Respiratory Ventilation, Less than 24 Consecutive Hours, Continuous Positive Airway Pressure (ICD-10-PCS; 2017-07-31)
PROC: 5A09357 Assistance with Respiratory Ventilation, Less than 24 Consecutive Hours, Continuous Positive Airway Pressure (ICD-10-PCS; 2017-08-01)
PROC: 5A09357 Assistance with Respiratory Ventilation, Less than 24 Consecutive Hours, Continuous Positive Airway Pressure (ICD-10-PCS; 2017-08-02)
DX: J84.114 Acute interstitial pneumonitis (principal); I50.33 Acute on chronic diastolic (congestive) heart failure; J96.01 Acute respiratory failure with hypoxia; R78.81 Bacteremia; J96.21 Acute and chronic respiratory failure with hypoxia; J47.1 Bronchiectasis with (acute) exacerbation; J98.11 Atelectasis; I48.91 Unspecified atrial fibrillation; J84.10 Pulmonary fibrosis, unspecified; B96.89 Other specified bacterial agents as the cause of diseases classified elsewhere; J40 Bronchitis, not specified as acute or chronic; Z79.899 Other long term (current) drug therapy; Z80.9 Family history of malignant neoplasm, unspecified; Z83.3 Family history of diabetes mellitus
CPT/HCPCS: 36415; 36600; 71045; 71046; 71250; 71275; 80048; 80053; 80202; 80339; 81003; 82103; 82550; 82553; 82803; 83605; 83735; 83880; 84100; 84132; 85025; 85027; 85610; 85651; 85730; 86038; 86140; 86215; 86255; 86431; 87040; 87071; 87205; 87804; 87880; 93005; 93306; 94640; 94660; 94664; 97039; A4218; C1894; J0696; J1160; J1644; J1650; J1940; J1956; J2185; J2920; J2930; J3370; J3490; J7030; Q9967

== ENCOUNTER 2020-09-11 05:10 | Emergency (ER) | payer OTHER ==
[~2020-09-11 05:10] MED LIST: ACET-2247 PO; BUDE0.5A3 IH; DILT120C89 PO; FURO10VI4 IV; FURO80TA3 PO; IPRNEB IH; MERO1VIA23 IVP; METH40VI31 IVP; METO25 PO; ONDA2VIA IVP; POTA20TA12 PO; SULF1TAB41 PO
[2020-09-11 05:50] LABS: BASOPHILS % (AUTO) 0.3 % (0.0-5.0); EOSINOPHILS % (AUTO) 1.3 % (0.0-8.0); HEMATOCRIT 47.6 % (42-54); LYMPHOCYTES % (AUTO) 27.7 % (21.0-51.0); MEAN CORPUSCULAR HEMOGLOBIN 28.3 pg (27.0-33.0); MEAN CORPUSCULAR HGB CONC 32.4 g/dL (32.0-36.0); MEAN CORPUSCULAR VOLUME 87.3 fL (79-99); MONOCYTES % (AUTO) 6.8 % (3.0-13.0); NEUTROPHILS % (AUTO) 63.6 % (40.0-77.0); PLATELET COUNT (AUTO) 206 K/uL (130-400); RED BLOOD CELL COUNT(AUTO) 5.45 MIL/uL (4.50-6.20); RED CELL DISTRIBUTION WIDTH 15.2 % (11.0-15.5); WHITE BLOOD COUNT (AUTO) 8.9 K/uL (4.8-10.8)
[2020-09-11 05:51] LABS: APPEARANCE,URINE Clear (CLEAR); BILIRUBIN,URINE Negative (NEGATIVE); COLOR,URINE Yellow (YELLOW); GLUCOSE, URINE (UA) Negative (NEGATIVE); KETONES,URINE Negative (NEGATIVE); LEUKOCYTE ESTERASE ,URINE Negative (NEGATIVE); NITRATE,URINE Negative (NEGATIVE); OCCULT BLOOD,URINE Large (NEGATIVE); PROTEIN,URINE Negative (NEGATIVE); UROBILINOGEN,URINE 0.2 mg/dL (0.2-1.0)
[2020-09-11 06:00] LABS: BACTERIA,URINE Few /HPF (None Seen); SQUAMOUS EPITHELIAL CELL,UR 0-2 /HPF (0-2); WBC,URINE 0-1 /HPF (0-1)
[2020-09-11 06:10] LABS: CREATININE 1.3 mg/dL (0.5-1.5); POTASSIUM 4.5 mmol/L (3.5-5.1)
[2020-09-11 06:15] LABS: ALBUMIN 3.4 g/dL (3.5-5.0); BILIRUBIN,TOTAL 0.4 mg/dL (0.2-1.0)
[2020-09-11] MEDS ORDERED: KETOROLAC TROMETHAMINE 15MG/ML ONE (07:07)
[2020-09-11] MEDS ORDERED: TAMSULOSIN HCL 0.4 MG CAP.ER.24H ONE (07:08)
== END 2020-09-11 08:27 | disposition home or self-care (01) ==
LOC: EDH 05:10
DX: N20.2 Calculus of kidney with calculus of ureter (principal); R31.9 Hematuria, unspecified; J84.112 Idiopathic pulmonary fibrosis
CPT/HCPCS: 36415; 71045; 74176; 80053; 81001; 82150; 82550; 83690; 84484; 85025; 93005; 96361; 96374; 99284; J1885; J7030